=== PATIENT | male | born 2000 | race Caucasian/White ===

== ENCOUNTER 2021-07-09 23:40 | Emergency (ER) | payer OTHER ==
[2021-07-09 23:50] VITALS: BP 120/73; PULSE 80; TEMP 97.6; BMI 25.7
== END 2021-07-10 01:26 | disposition home or self-care (01) ==
LOC: FER 23:40
DX: F41.9 Anxiety disorder, unspecified (principal); R10.9 Unspecified abdominal pain
CPT/HCPCS: 99283-25